=== PATIENT | female | born 2000 | race Caucasian/White ===

== ENCOUNTER 2022-02-07 23:02 | Inpatient (IN) | payer SELFPAY ==
--- NOTE | 2022-02-08 01:16 | Ultrasound Report ---
Obstetrical ultrasound INDICATION: well being. FINDINGS: There is a single intrauterine gestation in the cephalic position. The fetus heart rate darrel sures 142 bpm. The LOLY measures 9.1 cm The biparietal diameter measures 9.4 cm. The head circumference measures 34.1 cm measuring 39 weeks a nd 2 days. Abdominal circumference measures 44.9 cm measuring 38 weeks and 6 days. The femur length m easures 7.5 cm measuring 38 weeks and 3 days. Estimated weight measures 3589 g. IMPRESSION: Single living intrauterine with ultrasound age of 38 weeks and 5 days, as above . Signer Name: Khari Smith MD Signed: 02/08/2022 1:11 AM Workstation Name: [id number]
[2022-02-08] MEDS ORDERED: ePHEDrine SULFATE 50 MG/1 ML INJ IV PRN (01:47)
[2022-02-08] MEDS ORDERED: ACETAMINOPHEN 325 MG TAB PO PRN (01:47)
[2022-02-08] MEDS ORDERED: CARBOPROST TROMETHAMINE 250 MCG/1 ML INJ IM PRN (01:47)
[2022-02-08] MEDS ORDERED: TERBUTALINE 1 MG/1 ML INJ SUB-Q PRN (01:47)
[2022-02-08] MEDS ORDERED: fentaNYL 100 MCG/2 ML INJ IV PRN (01:47)
[2022-02-08] MEDS ORDERED: BUTORPHANOL 2 MG/1 ML INJ IV PRN (01:47)
[2022-02-08 01:55] LABS: Hematocrit 35.2 % (30.3-42.9); Mean Corpuscular HGB Conc 34 % (30-34); Mean Corpuscular Volume 91 fl (79-97); Platelet Count 215 K/mm3 (140-440); Red Blood Count 3.85 M/mm3 (3.65-5.03); Red Cell Distribution Width 14.4 % (13.2-15.2)
[2022-02-08] MEDS ORDERED: miSOPROStol 25 MCG TAB PO SCH (02:00)
[2022-02-08] MEDS ORDERED: LACTATED RINGERS 1,000 ML IV SCH (02:00)
[2022-02-08] MEDS ORDERED: OXYTOCIN DRIP 30 UNITS/500 ML BAG IV SCH (02:00)
--- NOTE | 2022-02-08 02:00 | History and Physical Report ---
History of Present Illness Date of examination: 02/08/22 Date of admission: 02/08/2022 Chief complaint: Contractions History of present illness: 21 y/o at 39-3/7 weeks gestation presents to OB triage reporting regular and painful uterine contractions every 2 to 3 minutes. No vaginal bleeding. No leakage of fluid. Good movement. In OB triage, blood pressure is greater than 140/90. No headache, diplopia, right upper quadrant pain, or scotomata. There is no history of hypertension prior to or elevated blood pressures prior to 20 weeks gestation. Hence, at a minimum, this patient carries the diagnosis of gestational hypertension. Cervical exam was 4 to 5 cm dilated. She is admitted to labor and delivery in early labor. The early labor will be augmented secondary to gestational hypertension. Past History Past Medical History: no pertinent history Past Surgical History: no surgical history Family/Genetic History: none Social history: no significant social history - Obstetrical History Expected Date of Delivery: 02/12/22 Actual Gestation: 39 Week(s) 3 Day(s) : 2 Para: 0 Medications and Allergies Allergies Allergy/AdvReac Type Severity Reaction Status Date / Time No Known Allergies Allergy Unverified 02/07/22 23:39 Active Meds: Active Medications Acetaminophen (Acetaminophen 325 Mg Tab) 650 mg PO Q4H PRN PRN Reason: Pain, Mild (1-3) Butorphanol Tartrate (Butorphanol 2 Mg/1 Ml Inj) 1 mg IV Q2H PRN PRN Reason: Pain, Moderate(4-6) LABOR PAIN Carboprost Tromethamine (Carboprost Tromethamine 250 Mcg/1 Ml Inj) 250 mcg IM ONCE PRN PRN Reason: Uterine Bleeding Ephedrine Sulfate (Ephedrine Sulfate 50 Mg/1 Ml Inj) 10 mg IV Q2M PRN PRN Reason: Hypotension Fentanyl (Fentanyl 100 Mcg/2 Ml Inj) 100 mcg IV Q2H PRN PRN Reason: Pain,Severe (7-10) LABOR PAIN Lactated Ringer's (Lactated Ringers) 1,000 mls @ 125 mls/hr IV DIRECT JJ Oxytocin/Sodium Chloride (Pitocin/Ns 30 Unit/500ml) 30 units in 500 mls @ 40 mls/hr IV TITR JJ; Protocol Misoprostol (Misoprostol 25 Mcg Tab) 25 mcg PO Q4H JJ Stop: 02/08/22 14:01 Terbutaline Sulfate (Terbutaline 1 Mg/1 Ml Inj) 0.25 mg SUB-Q ONCE PRN PRN Reason: Hyperstimulation/Hypertonicity Review of Systems All systems: negative - Vital Signs Vital signs: Vital Signs Pulse Pulse Ox 84 100 02/07/22 23:47 02/07/22 23:47 Temp Pulse Resp BP Pulse Ox 98.2 F 108 H 18 144/97 100 02/07/22 23:52 02/08/22 01:32 02/07/22 23:52 02/08/22 01:10 02/08/22 01:32 - Physical Exam Breasts: Positive: normal Cardiovascular: Regular rate Lungs: Positive: Normal air movement Abdomen: Positive: normal appearance Genitourinary (Female): Positive: normal external genitalia, normal perenium Vulva: both: normal Vagina: Positive: normal moisture Uterus: Positive: enlarged Adnexa: both: normal Anus/Rectum: Positive: normal perianal skin Deep Tendon Reflex Grade: Normal +2 - Obstetrical FHR: category 1 Uterine Contraction Monitor Mode: External Cervical Dilatation: 5 Cervical Effacement Percentage: 70 station: -3 Uterine Contraction Frequency (min): 3 Uterine Contraction Pattern: Regular Results All other labs normal. Ultrasound: report reviewed, image reviewed Assessment and Plan - Patient Problems (1) 39 weeks gestation of Current Visit: Yes Status: Acute Plan to address problem: care is up-to-date at [facility]. She is GBS negative. (2) Spontaneous onset of labor after 37 but before 39 completed weeks gestation with delivery by planned section Current Visit: Yes Status: Acute Plan to address problem: This patient is in early labor. She will be admitted to labor and delivery. Early labor will be augmented. (3) Gestational hypertension Current Visit: Yes Status: Acute Plan to address problem: Blood pressures greater than 140/90. Preeclampsia labs are ordered. No headache, diplopia, right upper quadrant pain, or scotomata. There are no severe range blood pressures. There are no signs or symptoms of severe preeclampsia. Augment labor with Cytotec.
[2022-02-08 03:12] LABS: Bilirubin,Urine NEG (Negative); Blood,Urine MOD (Negative); Color,Urine Yellow (Yellow); Mucus,Urine 3+ /HPF; Urobilinogen,Urine < 2.0 mg/dL (<2.0)
[2022-02-08 03:15] LABS: Protein,Urine >500 mg/dL (Negative)
[2022-02-08 03:33] LABS: Creatinine,Urine < 4.2 mg/dL (0.1-20.0)
[2022-02-08 03:37] LABS: Alanine Aminotransferase 22 units/L (7-56); Albumin 3.5 g/dL (3.9-5); Blood Urea Nitrogen 11 mg/dL (7-17); Calcium 8.5 mg/dL (8.4-10.2); Hemolysis Index 2
[2022-02-08 03:38] LABS: BUN/Creatinine Ratio 18
[2022-02-08 05:20] LABS: Uric Acid 6.1 mg/dL (3.5-7.6)
[2022-02-08] MEDS ORDERED: MAGNESIUM SULFATE 4 GM/100 ML BAG IV ONE (07:39)
--- NOTE | 2022-02-08 07:45 | Event Note ---
Date: 02/08/22 CC: Augmentation of labor, Pre-eclampsia w/ severe features HPI: No headaches, diplopia, right upper quadrant pain, or scotomata. O: BP= 143/94 EFM= category 1 TOCO= q 5 minutes LABS: Urine Protein to Creatinine Ratio (UPCR)= 18.81. There is significant proteinuria. Estimated 24 hour urine protein= 25,774 mg AST= 200+ ALT= 200+ IMP: 1.) 39 weeks 2.) Pre-eclampsia w/ severe features 3.) Labor PLAN: 1.) Start MgSO4 drip. 2.) AROM and Pitocin.
[2022-02-08] MEDS ORDERED: MAGNESIUM SULFATE 40GM/1000ML 40 GM/1,000 ML BAG IV SCH (08:00)
[2022-02-08] MEDS ORDERED: ONDANSETRON 4 MG/2 ML INJ IV PRN (10:00)
[2022-02-08] MEDS ORDERED: WITCH HAZEL/ GLYCERIN PAD TP PRN (10:00)
[2022-02-08] MEDS ORDERED: diphenhydrAMINE 25 MG CAP PO PRN (10:00)
[2022-02-08] MEDS ORDERED: LIDOCAINE (1%) 10 MG/1 ML VIAL 20 ML MDV INFILTRATI SCH (10:00)
[2022-02-08] MEDS ORDERED: HYDROcodone/ACETAMINOPHEN 5-325 MG TAB PO PRN (10:00)
[2022-02-08] MEDS ORDERED: MAGNESIUM HYDROXIDE (MOM) ORAL LIQD UDC PO PRN (10:00)
[2022-02-08] MEDS ORDERED: LANOLIN/ZINC/DIMETHICONE (LANSINOH) 7 GM TP PRN (10:00)
--- NOTE | 2022-02-08 10:11 | Procedure Note ---
OB Delivery Note - Delivery Date of Delivery: 02/08/22 Surgeon: JEFF WARD Estimated blood loss: 200cc - Vaginal Delivery presentation: vertex Delivery position: OA Intrapartum events: preeclampsia Delivery induction: none Delivery monitor: external FHT, external uterine Route of delivery: Delivery placenta: spontaneous Delivery cord: nuchal cord, 3 umbilical vessels Episiotomy: none Delivery laceration: 1st degree Delivery repair: vicryl Anesthesia: local Delivery comments: of live 7'5 female infant over a 1st degree vaginal laceration under IV pain control with Apgars of 8 and 9 at 0920 on 02/08/2022. Tight Nuchal cord x1 easily manually reduced on the perineum prior to delivery of the anterior shoulder. directly to maternal abd/chest, skin to skin contact. Spontaneous delivery of placenta complete and intact with Ward side presenting at 0928. Fundus is firm and midline located 5 below the U. Lochia is scant. Vaginal lacerations repaired with 2-0 Vicryl on a SH under local 2% Lidocaine. Delayed cord clamping and cutting. Cord blood collected; placenta discharged. - A at 1 minute: 8 at 5 minutes: 9 Gender: Female (7'5)
--- NOTE | 2022-02-09 09:09 | Progress Note ---
Assessment and Plan A: day 1 S/P . Preeclampsia. P: CBC has been drawn this morning; results pending. CMP and cath UA with C&S ordered. Continue routine care and vital sign monitoring. Anticipate discharge home tomorrow if patient continues to do well. Subjective - Subjective Date of service: 02/09/22 Principal diagnosis: day 1 S/P ; preeclampsia Interval history: Patient denies headache, visual disturbance, nausea or vomiting, or swelling. Patient reports small amount of lochia. Mild tachycardia, resolving. Patient reports: appetite normal, voiding normally, pain well controlled, flatus, ambulating normally, no dizzy ambulation, no nauseated : doing well Objective - Vital Signs Latest vital signs: Vital Signs Temp Pulse Resp BP Pulse Ox Pulse Ox 02/09/22 08:27 98.2 F 87 20 124/85 97 02/09/22 04:21 98.0 F 112 H 20 129/88 95 02/09/22 01:36 98.5 F 104 H 18 114/72 99 02/09/22 01:30 98 02/09/22 00:02 122 H 96 02/08/22 23:57 121 H 96 02/08/22 23:56 127 H 108/70 02/08/22 23:52 119 H 97 02/08/22 23:47 116 H 97 02/08/22 23:42 121 H 97 02/08/22 23:37 122 H 98 02/08/22 23:32 118 H 96 02/08/22 23:27 118 H 97 02/08/22 23:26 117 H 115/74 02/08/22 23:22 113 H 96 02/08/22 23:17 122 H 97 02/08/22 23:12 111 H 98 02/08/22 23:07 115 H 97 02/08/22 23:02 118 H 97 02/08/22 22:57 115 H 97 02/08/22 22:56 109 H 118/75 02/08/22 22:52 111 H 97 02/08/22 22:47 119 H 97 02/08/22 22:42 116 H 97 02/08/22 22:37 118 H 96 02/08/22 22:32 118 H 97 02/08/22 22:27 115 H 97 02/08/22 22:26 113 H 117/75 02/08/22 22:22 114 H 96 02/08/22 22:17 115 H 97 02/08/22 22:12 118 H 97 02/08/22 22:07 121 H 97 02/08/22 22:02 117 H 97 02/08/22 21:57 115 H 96 02/08/22 21:56 114 H 131/83 02/08/22 21:52 115 H 97 02/08/22 21:47 113 H 98 02/08/22 21:42 115 H 97 02/08/22 21:37 120 H 98 02/08/22 21:32 120 H 98 02/08/22 21:27 124 H 97 02/08/22 21:26 115 H 131/86 02/08/22 21:22 122 H 98 02/08/22 21:17 118 H 98 02/08/22 21:12 109 H 97 02/08/22 21:07 109 H 97 02/08/22 21:02 119 H 96 02/08/22 20:57 112 H 97 02/08/22 20:56 114 H 133/86 02/08/22 20:52 119 H 97 02/08/22 20:47 118 H 95 02/08/22 20:42 119 H 97 02/08/22 20:37 115 H 98 02/08/22 20:32 116 H 98 02/08/22 20:27 117 H 98 02/08/22 20:26 114 H 132/86 02/08/22 20:22 111 H 98 02/08/22 20:17 112 H 97 02/08/22 20:12 108 H 97 02/08/22 20:07 111 H 98 02/08/22 20:02 115 H 98 02/08/22 19:57 117 H 98 02/08/22 19:56 121 H 132/88 02/08/22 19:52 116 H 97 02/08/22 19:47 110 H 97 02/08/22 19:42 111 H 98 02/08/22 19:37 109 H 98 02/08/22 19:32 111 H 98 02/08/22 19:30 98.8 F 02/08/22 19:27 119 H 98 02/08/22 19:22 111 H 98 02/08/22 19:21 112 H 133/94 02/08/22 19:17 121 H 97 02/08/22 19:15 99 02/08/22 19:12 111 H 98 02/08/22 19:07 112 H 99 02/08/22 19:06 114 H 128/90 02/08/22 19:04 122 H 123/83 02/08/22 19:02 124 H 99 02/08/22 18:57 110 H 97 02/08/22 18:52 114 H 97 02/08/22 18:51 121 H 121/83 02/08/22 18:47 120 H 98 02/08/22 18:42 124 H 97 02/08/22 18:37 117 H 97 02/08/22 18:36 120 H 116/78 02/08/22 18:32 123 H 97 02/08/22 18:27 124 H 97 02/08/22 18:22 130 H 97 02/08/22 18:21 127 H 115/82 02/08/22 18:17 130 H 97 02/08/22 18:06 134 H 125/84 02/08/22 17:51 121 H 126/88 02/08/22 17:36 125 H 128/88 02/08/22 17:21 115 H 132/87 02/08/22 17:11 122 H 131/86 02/08/22 17:06 117 H 131/101 02/08/22 16:51 125 H 137/96 02/08/22 16:36 107 H 132/89 02/08/22 16:21 113 H 130/88 02/08/22 16:06 111 H 128/79 02/08/22 16:00 99.1 F 02/08/22 15:51 114 H 127/83 02/08/22 15:36 118 H 118/70 02/08/22 15:21 123 H 139/91 02/08/22 15:06 114 H 133/86 02/08/22 14:51 121 H 129/86 02/08/22 14:36 116 H 133/86 02/08/22 14:21 115 H 126/86 02/08/22 14:06 118 H 131/90 02/08/22 13:50 121 H 135/90 02/08/22 13:36 114 H 131/89 02/08/22 13:20 114 H 142/90 02/08/22 13:06 121 H 131/87 02/08/22 13:00 98.4 F 02/08/22 12:51 122 H 127/81 02/08/22 12:40 127 H 128/77 02/08/22 12:35 113 H 123/74 02/08/22 12:21 110 H 126/85 02/08/22 12:05 120 H 132/90 02/08/22 11:51 103 H 123/78 02/08/22 11:21 104 H 136/88 02/08/22 11:05 103 H 137/89 02/08/22 10:51 104 H 135/85 02/08/22 10:35 110 H 140/91 02/08/22 10:21 112 H 140/91 02/08/22 10:06 104 H 131/89 02/08/22 10:00 98.4 F 02/08/22 09:51 108 H 142/90 02/08/22 09:35 107 H 133/82 02/08/22 09:23 112 H 138/79 02/08/22 09:13 100 H 100 02/08/22 09:12 72 L Intake and Output 02/08/22 02/09/22 02/09/22 23:59 07:59 15:59 Intake Total 1708.333 Output Total 1900 Balance -191.667 Intake: IV 1708.333 Lactated Ringers 1,000 ml 1000 @ 125 mls/hr IV DIRECT JJ Rx#:[id number] MAGNESIUM SULFATE 40GM/ 708.333 1000ML 40 gm In 1,000 ml @ 2 GM/HR 50 mls/hr IV DIRECT JJ Rx#:[id number] PITOCin/NS 30 UNIT/500ML 0 30 units In 500 ml @ 40 mls/hr IV TITR JJ Rx#: [id number] Output: Urine 1900 Void 1900 Other: Total, Output Amount 600 - Exam Cardiovascular: Present: Regular rate Lungs: Present: Clear to auscultation Abdomen: Present: normal appearance, soft. Absent: distention, tenderness, guarding, rigidity Uterus: Present: normal, firm, fundal height below umbilicus (fundus firm and midline at 2 FB below umbilicus). Absent: bogginess, tenderness Extremities: Absent: tenderness, edema - Labs Labs: Abnormal lab results 02/08/22 Range/Units 13:26 Magnesium 4.70 H (1.7-2.3) mg/dL
[2022-02-09 10:30] LABS: Basophils % (Auto) 0.2 % (0.0-1.8); Eosinophils % (Auto) 0.1 % (0.0-4.3); Hematocrit 28.2 % (30.3-42.9); Hemoglobin 9.5 gm/dl (10.1-14.3); Lymphocytes # (Auto) 2.4 K/mm3 (1.2-5.4); Lymphocytes % (Auto) 17.9 % (13.4-35.0); Mean Corpuscular HGB Conc 34 % (30-34); Mean Corpuscular Volume 92 fl (79-97); Monocytes # (Auto) 0.9 K/mm3 (0.0-0.8); Monocytes % (Auto) 7.1 % (0.0-7.3); Platelet Count 192 K/mm3 (140-440); Red Blood Count 3.07 M/mm3 (3.65-5.03); Red Cell Distribution Width 15.1 % (13.2-15.2)
[2022-02-09 12:05] LABS: Alanine Aminotransferase 16 units/L (7-56); Albumin 2.7 g/dL (3.9-5); Blood Urea Nitrogen 7 mg/dL (7-17); Calcium 7.6 mg/dL (8.4-10.2); Hemolysis Index 10
[2022-02-09 12:09] LABS: BUN/Creatinine Ratio 12
[2022-02-09] MEDS: FERROUS SULFATE 325 MG TAB PO SCH ×2 (12:26→22:35)
[2022-02-09] MEDS ORDERED: ACETAMINOPHEN 500 MG TAB PO PRN (12:30)
[2022-02-09 12:57] LABS: Bilirubin,Urine NEG (Negative); Blood,Urine LG (Negative); Color,Urine Red (Yellow); Urobilinogen,Urine < 2.0 mg/dL (<2.0)
[2022-02-09 14:04] LABS: RBC,Urine < 1.0 /HPF (0.0-6.0); WBC,Urine < 1.0 /HPF (0.0-6.0)
--- NOTE | 2022-02-09 18:37 | Event Note ---
Date: 02/09/22 pt seen and fundus firm 3cm below the umbilicus. Vag bleed moderate and pt allowed to void. Will repeat cbc for hgb trends at 2300 tonight. Agree with iron supplement bid by Delma. Vitamin C added. Pt with mild labial swelling and tenderness to left side, where sutures are in place. Plan of care discussed with pt and charge nurse.
[2022-02-09] MEDS: ASCORBIC ACID 500 MG TAB PO SCH ×2 (18:45→22:35)
[2022-02-10 00:36] LABS: Basophils # (Auto) 0.1 K/mm3 (0.0-0.1); Basophils % (Auto) 0.4 % (0.0-1.8); Eosinophils # (Auto) 0.1 K/mm3 (0.0-0.4); Eosinophils % (Auto) 0.5 % (0.0-4.3); Hemoglobin 10.1 gm/dl (10.1-14.3); Lymphocytes # (Auto) 3.3 K/mm3 (1.2-5.4); Mean Corpuscular HGB Conc 33 % (30-34); Mean Corpuscular Volume 91 fl (79-97); Monocytes # (Auto) 1.1 K/mm3 (0.0-0.8); Monocytes % (Auto) 7.9 % (0.0-7.3); Platelet Count 217 K/mm3 (140-440); Red Blood Count 3.42 M/mm3 (3.65-5.03); Red Cell Distribution Width 15.2 % (13.2-15.2)
--- NOTE | 2022-02-10 08:28 | Progress Note ---
Assessment and Plan A: day 2 S/P . Preeclampsia. Anemia. P: Dr. Liu states to discharge patient home today. Discussed with patient discharge instructions and warning signs. Advised patient to continue taking her vitamin and iron supplements at home. Advised patient to take Augmentin at home as prescribed by MD (Rx has been printed and left on chart for patient). Advised patient to avoid intercourse and lifting. Advised patient to follow up at [facility] clinic in 3 days. Patient voiced understanding of all instructions. Subjective - Subjective Date of service: 02/10/22 Principal diagnosis: day 2 S/P ; preeclampsia Interval history: Patient denies headache, visual disturbance, nausea or vomiting, or swelling. Patient reports small amount of lochia. Patient reports: appetite normal, voiding normally, pain well controlled, flatus, ambulating normally, no dizzy ambulation, no nauseated : doing well Objective - Vital Signs Latest vital signs: Vital Signs Temp Pulse Resp BP BP Pulse Ox Pulse Ox 02/10/22 01:02 97.7 F 100 H 20 128/88 98 02/09/22 21:00 98 02/09/22 18:45 16 02/09/22 16:52 97.8 F 96 H 128/79 02/09/22 12:28 16 02/09/22 09:20 97 02/09/22 08:27 98.2 F 87 20 124/85 97 Intake and Output 02/09/22 02/10/22 02/10/22 23:59 07:59 15:59 Intake Total 240 Balance 240 Intake: Oral 240 Other: Total, Intake Amount 240 # Voids Void 1 1 - Exam Cardiovascular: Present: Regular rate Lungs: Present: Clear to auscultation Abdomen: Present: normal appearance, soft, normal bowel sounds. Absent: distention, tenderness, guarding, rigidity Uterus: Present: normal, firm, fundal height below umbilicus (fundus firm and midline at 3 FB below umbilicus). Absent: bogginess, tenderness Extremities: Absent: tenderness - Labs Labs: Abnormal lab results 02/09/22 02/09/22 02/09/22 Range/Units 10:48 12:10 Unknown WBC 13.2 H (4.5-11.0) K/mm3 RBC 3.07 L (3.65-5.03) M/mm3 Hgb 9.5 L (10.1-14.3) gm/dl Hct 28.2 L D (30.3-42.9) % Archer % (Auto) (0.0-7.3) % Archer # (Auto) 0.9 H (0.0-0.8) K/mm3 Seg Neutrophils % 74.7 H (40.0-70.0) % Seg Neutrophils # 9.8 H (1.8-7.7) K/mm3 Calcium 7.6 L (8.4-10.2) mg/dL Alkaline Phosphatase 143 H (35-129) units/L Total Protein 5.3 L D (6.3-8.2) g/dL Albumin 2.7 L (3.9-5) g/dL Urine pH 9.0 H (5.0-7.0) 02/10/22 Range/Units 00:11 WBC 13.6 H (4.5-11.0) K/mm3 RBC 3.42 L (3.65-5.03) M/mm3 Hgb (10.1-14.3) gm/dl Hct (30.3-42.9) % Archer % (Auto) 7.9 H (0.0-7.3) % Archer # (Auto) 1.1 H (0.0-0.8) K/mm3 Seg Neutrophils % (40.0-70.0) % Seg Neutrophils # 9.2 H (1.8-7.7) K/mm3 Calcium (8.4-10.2) mg/dL Alkaline Phosphatase (35-129) units/L Total Protein (6.3-8.2) g/dL Albumin (3.9-5) g/dL Urine pH (5.0-7.0)
--- NOTE | 2022-02-10 08:33 | Discharge Summary ---
Providers - Providers Date of Admission: 02/08/22 01:48 Date of discharge: 02/10/22 Attending physician: LEVI WAGNER MD Primary care physician: LEVI WAGNER MD Hospitalization Reason for admission: active labor Delivery: Laceration: 1st degree Other procedures: none Discharge diagnosis: IUP at term delivered baby: female Pertinent studies: Labs Hospital course: Stable hospital course. Condition at discharge: Good Disposition: 01 HOME / SELF CARE / HOMELESS - Discharge Diagnoses (1) Term delivered Status: Acute (2) Anemia Status: Acute Plan - Discharge Medications Prescriptions: Amoxicillin/Potassium Clav [Augmentin 875-125 Tablet] 1 tab PO BID 7 Days #14 Ibuprofen [Motrin] 800 mg PO Q8HR PRN 21 Days #40 tablet PRN Reason: Pain, Moderate (4-6) - Provider Discharge Summary Activity: routine, no sex for 6 weeks, no heavy lifting 4 weeks, no strenuous exercise Diet: routine Instructions: routine Additional instructions: Continue taking youre vitamin and iron supplement at home. Take Augmentin as prescribed by MD. Follow up at [facility] clinic in 3 days. Call your doctor immediately for: * Fever > 100.5 * Heavy vaginal bleeding ( >1 pad per hour) * Severe persistent headache * Shortness of breath * Reddened, hot, painful area to leg or breast - Follow up plan Follow up: [facility] [Referring] - 3 Days
[2022-02-10] MEDS: AMOXICILLIN/K CLAV 875/125MG TAB PO SCH (14:52)
[2022-02-10] MEDS: FERROUS SULFATE 325 MG TAB PO SCH ×2 (14:54→22:48)
[2022-02-10] MEDS: ASCORBIC ACID 500 MG TAB PO SCH ×2 (14:55→22:48)
[2022-02-11] MEDS: AMOXICILLIN/K CLAV 875/125MG TAB PO SCH ×2 (03:11→10:11)
[2022-02-11 05:26] LABS: Basophils % (Auto) 0.4 % (0.0-1.8); Eosinophils # (Auto) 0.1 K/mm3 (0.0-0.4); Eosinophils % (Auto) 0.9 % (0.0-4.3); Hematocrit 29.9 % (30.3-42.9); Hemoglobin 9.6 gm/dl (10.1-14.3); Lymphocytes # (Auto) 2.4 K/mm3 (1.2-5.4); Lymphocytes % (Auto) 20.6 % (13.4-35.0); Mean Corpuscular HGB Conc 32 % (30-34); Mean Corpuscular Volume 94 fl (79-97); Monocytes # (Auto) 0.7 K/mm3 (0.0-0.8); Monocytes % (Auto) 6.4 % (0.0-7.3); Platelet Count 236 K/mm3 (140-440); Red Blood Count 3.18 M/mm3 (3.65-5.03); Red Cell Distribution Width 15.3 % (13.2-15.2)
[2022-02-11] MEDS: FERROUS SULFATE 325 MG TAB PO SCH (10:10)
[2022-02-11] MEDS: ASCORBIC ACID 500 MG TAB PO SCH (10:11)
--- NOTE | 2022-02-11 12:31 | Progress Note ---
Assessment and Plan A: day 3 S/P . Preeclampsia. Anemia. P: Consulted with Dr. Liu re: this patient. Dr. Liu states to discharge patient home today. Discussed with patient discharge instructions and warning signs. Advised patient to continue taking her vitamin and iron supplements at home. Advised patient to take Augmentin at home as prescribed by MD (Rx has been printed and left on chart for patient). Advised patient to avoid intercourse and lifting. Advised patient to follow up at [facility] clinic in 3 days. Patient voiced understanding of all instructions. - Patient Problems (1) Term delivered Current Visit: Yes Status: Acute (2) Anemia Current Visit: Yes Status: Acute Subjective - Subjective Date of service: 02/11/22 Principal diagnosis: day 3 S/P ; preeclampsia Interval history: Patient denies headache, visual disturbance, nausea or vomiting, or swelling. Patient denies fatigue or palpitations. Patient reports small amount of lochia. Patient reports: appetite normal, voiding normally, pain well controlled, flatus, ambulating normally, no dizzy ambulation, no nauseated [place]: doing well Objective - Vital Signs Latest vital signs: Vital Signs Temp Pulse Resp BP Pulse Ox Pulse Ox 02/11/22 10:33 115 H 16 99 02/11/22 08:50 97.8 F 100 H 16 124/83 97 02/11/22 08:00 99 02/11/22 05:21 98.0 F 91 H 20 130/85 98 02/11/22 00:57 98.5 F 94 H 18 129/88 98 02/10/22 21:16 98.3 F 109 H 20 130/90 97 02/10/22 21:10 99 02/10/22 16:50 99.0 F 96 H 18 127/82 96 02/10/22 13:10 98.1 F 123 H 16 123/81 99 Intake and Output 02/10/22 02/11/22 02/11/22 23:59 07:59 15:59 Intake Total 600 Balance 600 Intake: Oral 240 Intake, Free Water 360 Other: Total, Intake Amount 120 # Voids Void 1 1 1 - Exam Cardiovascular: Present: Regular rate Lungs: Present: Clear to auscultation Abdomen: Present: normal appearance, soft, normal bowel sounds. Absent: distention, tenderness, guarding, rigidity Uterus: Present: normal, firm, fundal height below umbilicus (fundus firm and midline at 3 FB below umbilicus). Absent: bogginess, tenderness Extremities: Absent: tenderness, edema Comments: Perineum healing well; no edema or ecchymosis. Cervix FT and thick. Vaginal exam normal. - Labs Labs: Abnormal lab results 02/11/22 Range/Units 04:41 WBC 11.6 H (4.5-11.0) K/mm3 RBC 3.18 L (3.65-5.03) M/mm3 Hgb 9.6 L (10.1-14.3) gm/dl Hct 29.9 L (30.3-42.9) % RDW 15.3 H (13.2-15.2) % Seg Neutrophils % 71.7 H (40.0-70.0) % Seg Neutrophils # 8.3 H (1.8-7.7) K/mm3
--- NOTE | 2022-02-11 12:35 | Discharge Summary ---
Providers - Providers Date of Admission: 02/08/22 01:48 Date of discharge: 02/11/22 Attending physician: LEVI WAGNER MD Primary care physician: LEVI WAGNER MD Hospitalization Reason for admission: active labor Delivery: Laceration: 1st degree Other procedures: none complications: none Discharge diagnosis: IUP at term delivered [place] baby: female Pertinent studies: Labs Hospital course: Stable hospital course Condition at discharge: Good Disposition: 01 HOME / SELF CARE / HOMELESS - Discharge Diagnoses (1) Term delivered Status: Acute (2) Anemia Status: Acute Plan - Discharge Medications Prescriptions: Amoxicillin/Potassium Clav [Augmentin 875-125 Tablet] 1 tab PO BID 7 Days #14 Ibuprofen [Motrin] 800 mg PO Q8HR PRN 21 Days #40 tablet PRN Reason: Pain, Moderate (4-6) - Provider Discharge Summary Activity: routine, no sex for 6 weeks, no heavy lifting 4 weeks, no strenuous exercise Diet: routine Instructions: routine Additional instructions: Continue taking your vitamin and iron supplements at home. Take Augmentin as prescribed by MD (prescription is on chart). Follow up at [facility] clinic in 3 days. Call your doctor immediately for: * Fever > 100.5 * Heavy vaginal bleeding ( >1 pad per hour) * Severe persistent headache * Shortness of breath * Reddened, hot, painful area to leg or breast - Follow up plan Follow up: PRIMARY [facility], [Referring] - 3 Days Forms: [facility] Discharge Summary
[2022-02-11 18:38] VITALS: BP 130/81
== END 2022-02-11 15:00 | disposition home or self-care (01) | DRG 807 ==
LOC: TRG 23:02 → APU 23:46 → LD 02-08 01:48 → TRG 02-08 01:48 → LD 02-08 02:03 → OB 02-09 02:10
PROVIDERS: ADMIT Obstetrics & Gynecology Gynecology; ATTEND Obstetrics & Gynecology Gynecology
PROC: 10E0XZZ Delivery of Products of Conception, External Approach (ICD-10-PCS; principal; 2022-02-08)
PROC: 0HQ9XZZ Repair Perineum Skin, External Approach (ICD-10-PCS; 2022-02-08)
DX: O13.4 Gestational [pregnancy-induced] hypertension without significant proteinuria, complicating childbirth (principal); Z37.0 Single live birth; Z20.822 Contact with and (suspected) exposure to COVID-19; O14.14 Severe pre-eclampsia complicating childbirth; O70.0 First degree perineal laceration during delivery; O69.81X0 Labor and delivery complicated by cord around neck, without compression, not applicable or unspecified; O99.02 Anemia complicating childbirth; Z3A.39 39 weeks gestation of pregnancy
CPT/HCPCS: 36415; 59025; 76816; 80053; 81001; 82570; 83615; 83735; 84156; 84550; 85025; 85027; 86592; 86762; 86850; 86900; 86901; 87086; G0378; J0595; J2590; J3010; J3475; J7120; U0003